=== PATIENT | male | born 1935 | race Caucasian/White ===

== ENCOUNTER → 2018-11-16 | Outpatient (CLI) | payer OTHER ==
[~2018-11-16] VITALS: Ht 182.9 cm; Wt 85.3 kg
[~2018-11-16] MED LIST: CLONIDINE HCL0.3 M3 PO; COUMADIN 2 MG TA2 M1 PO; FENOFIBRATE134 MG PO; FLOMAX0.4 MG PO; HYDRALAZINE 2525 MG PO; HYDROCHLOROTHIA25 M2 PO; LISINOPRIL40 MG PO; NITROGLYCERIN0.4 MG PO; OSTEO BI-FLEX1 EAC1 PO; PRAVACHOL40 MG PO; PRILOSEC 20 MG20 MG PO; UNICOMPLEX M TA1 TA1 PO
[2018-11-16 08:57] LABS: HEMATOCRIT 37.1 % (42.0-52.0); HEMOGLOBIN 12.5 gm/dL (14.0-18.0); MCH 32.3 pg (26.0-34.0); MCHC 33.8 g/dL (28.0-37.0); MCV 95.6 fL (80.0-100.0); MPV 9.5 fl. (7.2-11.1); RBC 3.88 mil/uL (4.50-6.00); RDW-CV 14.1 % (10.5-14.5); WBC 4.4 thou/uL (4.0-11.0)
[2018-11-16 09:09] LABS: ALBUMIN 3.9 g/dL (3.4-5.0); ALKALINE PHOSPHATASE 37 U/L (46-116); ANION GAP 6 mmol/L (7-16); BUN 23 mg/dL (7-18); CALCIUM 9.2 mg/dL (8.5-10.1); CHLORIDE 105 mmol/L (98-107); CHOLESTEROL 136 mg/dL (<200); CO2 29 mmol/L (21-32); CREATININE 1.4 mg/dL (0.6-1.3); GLUCOSE 122 mg/dL (70-99); HDL CHOLESTEROL 46 mg/dL (>40); LDL CHOLESTEROL 77 mg/dL (<100); POTASSIUM 3.7 mmol/L (3.5-5.1); SERUM ASSESSMENT Clear; SGOT 26 U/L (15-37); SGPT 26 U/L (30-65); SODIUM 140 mmol/L (136-145); TOTAL BILIRUBIN 0.7 mg/dL (<0.1-1.0); TOTAL PROTEIN 8.1 g/dL (6.4-8.2); TRIGLYCERIDE 67 mg/dL (<150); VLDL 13 mg/dL (<40)
[2018-11-16 09:10] LABS: APTT 31.5 Seconds (25.0-31.3); INR 1.2; PROTIME 12.2 Seconds (9.20-11.50)
[2018-11-16 09:26] VITALS: BP 159/68
--- NOTE | 2018-11-16 12:22 | EKG ---
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
[2018-11-16 12:30] VITALS: BP 166/65
[2018-11-16 12:45] VITALS: BP 171/67
[2018-11-16 13:15] VITALS: BP 143/99
[2018-11-16 13:30] VITALS: BP 141/90
[2018-11-16 14:27] VITALS: BP 158/64
--- NOTE | 2018-11-16 15:34 | EKG ---
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 : 1935 Requested By: Palmer Ferrell Order Number: [id number] Reading MD: Palmer Ferrell Measurements Intervals [place] Rate: 86 P: 79 LA: 212 QRS: 58 QRSD: 148 T: 250 QT: 503 QTc: 602 Interpretive Statements Ventricular-paced complexes atrial fibrillation with pvc's RBBB No further analysis attempted due to paced rhythm Compared to ECG 11/16/2018 08:54:08 ventricular paced beats noted Electronically Signed On 11-16-2018 15:34:20 CDT by Palmer Ferrell [email or web address] <ELECTRONICALLY SIGNED> By: Palmer Ferrell MD, [facility] 11/16/18 1534 1242 124 Palmer Ferrell MD, [facility] /EPI
--- NOTE | 2018-11-16 18:23 | CARD ---
[address] [address] CARDIAC CATH REPORT Name: SALBADOR DANIELS [id number] Admission: 11/16/18 Attend Phys: Palmer Ferrell MD, F Discharge: Date of : 31 Report #: [id number] THIS REPORT FOR: //name// APPROVED REPORT Study performed: 11/16/2018 09:41:35 Patient Status: Out-Patient Room #: Event Personnel: Palmer Ferrell Optics Test Technician, Veronica Purvis RN Aviation Technician, Todd Mcdonald (R) Monitor, Frank Espinoza [employer] TEAM MEMBER Scrub Exam: Insertion of Single Chamber Permanent Pacemaker Indications: atrial fibrillation with slow rates The patient is a 82 year-old male with a history of Dizziness and vertigo. Patient Info Anticoagulant Therapy: warfarin Conscious Sedation Start time: 10:47 End Time: 11:55 Versed 4 mg Implanted Devices: permanent single chamber mri compatible biotronic pacemaker and lead Procedure The patient underwent informed consent. We discussed the details of the procedure including the risks, which include, but not limited to bleeding, infection, vascular damage, cardiac perforation, and pneumothorax. He understood these risks and was willing to proceed. As such, he was brought to the EP/Cardiac Catheterization laboratory in a fasting and sedated state and prepped and draped in a sterile fashion, received IV antibiotics prior to initiation of the procedure and a venogram was performed showing patency of the left axillary vein. The patient underwent conscious sedation, with no related complications. The patient was brought to the EP/Cardiac Catheterization laboratory and the left chest and shoulder were prepped and draped in a sterile manner. During this case, Fluoroscopy and low osmolar contrast were used for imaging. The left subclavian region was infiltrated with 2% [place] [address] CARDIAC CATH REPORT Name: FRANCESSALBADOR BEATRICE Room: [facility]#: [id number] Admission: 11/16/18 Attend Phys: Palmer Ferrell MD, F Discharge: Date of : 31 Report #: [id number] subcutaneous anesthesia. A transverse incision was made in the left upper chest cavity. The subcutaneous pocket was formed via blunt dissection. Percutaneous venous access was achieved and an introducer sheath was inserted into the left Subclavian vein. Sheaths were positions using the modified Seldinger technique Through the introducer sheaths the ventricular lead wire was positioned in the right atrial appendage and right ventricular apex respectively. Utilizing fluoroscopic guidance, the ventricular lead wire was advanced over the wires and positioned in the right atria and right ventricle respectively. Capturing and sensing thresholds were verified. Electrode Parameters R Wave: 9 mv Ventricular Threshold: 0.5 v @ 0.4 ms Ventricular Resistance: 677 ohm Single Chamber The ventricular lead was attached to the appropriate receptacle on the pulse generator and set screws firmly tightened to insure adequate contact and stability. The lead and pulse generator were placed into the subcutaneous pocket. Sharp and sponge counts were confirmed to be correct. At this time the pocket was closed subcutaneously with a 0 Vicryl and the skin was closed with a 3.0 Vicryl. The operative site was dressed in sterile fashion with skin affix and the patient was transferred to the floor in stable condition. Complications The patient tolerated the procedure well and there were no complications associated with the procedure. d-stat flowable was used to irrigate the pacer pocket prior to inserting the generator. Findings Specimens Removed: No Estimated Blood Loss: 5 [place] [address] CARDIAC CATH REPORT Name: FRANCESSALBADOR BEATRICE Room: [facility]#: [id number] Admission: 11/16/18 Attend Phys: Palmer Ferrell MD, F Discharge: Date of : 31 Report #: [id number] successful placement of a permanent single chamber pacemaker and lead <ELECTRONICALLY SIGNED> By: Palmer Ferrell MD, FACC 11/16/18 1823 22 1823Dlucero Ferrell MD, FACC /INF
== END | disposition home or self-care (01) ==
LOC: M.CL 11-06 10:00
PROVIDERS: Internal Medicine Cardiovascular Disease
DX: I48.91 Unspecified atrial fibrillation (principal); Z98.890 Other specified postprocedural states; Z87.891 Personal history of nicotine dependence; Z79.01 Long term (current) use of anticoagulants; Z85.51 Personal history of malignant neoplasm of bladder; Z79.899 Other long term (current) drug therapy; Z95.1 Presence of aortocoronary bypass graft